=== PATIENT | female | born 1955 | race American Indian/Alaskan Native ===

== ENCOUNTER 2018-03-18 09:04 | Day surgery (SDC) | payer OTHER ==
[~2018-03-18 09:04] MED LIST: MARCAINE-EPI 0.25%-1:200,000 IJ ONE
--- NOTE | 2018-03-18 11:48 | Anesthesia Consultation ---
Anesthesia Consult and Med Hx Date of service: 03/18/18 - Airway Anesthetic Teeth Evaluation: Good ROM Head & Neck: Adequate Mental/Hyoid Distance: Adequate Mallampati Class: Class II Intubation Access Assessment: Probably Good - Pulmonary Exam CTA: Yes - Cardiac Exam Cardiac Exam: No Murmur - Pre-Operative Health Status ASA Pre-Surgery Classification: ASA2 Proposed Anesthetic Plan: General - Pre-Anesthesia Comment Pre-Anesthesia Comments: patient tolerates 4 METS. limited by joint pain. - Pulmonary Hx Smoking: No Hx Sleep Apnea: Yes (DX SLEEP APNEA , NO CPAP SINCE WEIGHT LOSS) - Cardiovascular System Hx Hypertension: Yes (2000) Hx Heart Attack/AMI: No Hx Heart Murmur: Yes - Central Nervous System Hx Back Pain: Yes - Endocrine Hx Hypothyroidism: Yes (ON DAILY MEDS) - Hematic Hx Anemia: Yes (NOT RECENT) - Other Systems Hx Cancer: No
--- NOTE | 2018-03-18 11:48 | Anesthesia Day of Surgery ---
Anesthesia Day of Surgery - Day of Surgery Patient Examined: Yes Patient H&P Reviewed: Yes Patient is NPO: Yes
[2018-03-18] MEDS ORDERED: NARCAN 0.4 MG/1 ML IV PRN (11:49)
[2018-03-18] MEDS ORDERED: ZOFRAN IV PRN ×2 (11:49→13:57)
[2018-03-18] MEDS ORDERED: DILAUDID IV PRN (11:49)
[2018-03-18] MEDS ORDERED: DEMEROL IV PRN (11:49)
[2018-03-18] MEDS ORDERED: DILAUDID IV STA (12:00)
[2018-03-18] MEDS ORDERED: LACTATED RINGERS 1,000 ML IV SCH (12:00)
[2018-03-18] MEDS ORDERED: DIPRIVAN 10 MG/ML IV ONE (12:43)
[2018-03-18] MEDS ORDERED: ANCEF/STERILE WATER 2 GM/20 ML IV NR (13:00)
[2018-03-18] MEDS ORDERED: MARCAINE-EPI 0.25%-1:200,000 IJ ONE ×2 (13:33→13:42)
[2018-03-18] MEDS ORDERED: TORADOL ONE (13:54)
[2018-03-18] MEDS ORDERED: TORADOL IV PRN (13:57)
--- NOTE | 2018-03-18 13:58 | Post Anesthesia Evaluation ---
- Post Anesthesia Evaluation Patient Participated: Yes Airway Patent: Yes Stable Respiratory Function: Yes Nausea/Vomiting: No Temp > 96.8F: Yes Pain Manageable: Yes Adequeate Hydration: Yes Anesthesia Complications: No
[2018-03-18] MEDS: DILAUDID IV PRN ×2 (14:20→14:39)
[2018-03-18 15:20] VITALS: BP 150/77
--- NOTE | 2018-03-19 01:36 | Operative Report ---
PREOPERATIVE DIAGNOSES: Right knee with meniscal tears medial and lateral, degenerative joint disease. POSTOPERATIVE DIAGNOSES: 1. Right knee with complex tear lateral meniscus, displaced bucket handle. 2. Tear posterior horn and body medial meniscus. 3. Grade 4 chondromalacia lateral compartment. 4. Grade 4 chondromalacia patellofemoral compartment. 5. Synovitis extensive. 6. Grade 3 chondromalacia medial femoral condyle. PROCEDURE PERFORMED: 1. Right knee arthroscopy and partial medial and lateral meniscectomy -- complex. 2. Extensive synovectomy. SURGEON: Jamal Aguilar M.D. FOCUSING MACHINE OPERATOR: Shekhar Machuca CSA. ANESTHESIA: General. ESTIMATED BLOOD LOSS: Minimal. COMPLICATIONS: None. DESCRIPTION OF PROCEDURE: The patient underwent successful induction of anesthesia. Antibiotics were pre-administered. Lower extremity was prepped and draped in usual fashion after exsanguination and placing in the leg finch. Arthroscopy was carried out utilizing standard medial and lateral portals. Systematic exam of the joint was carried out demonstrating the findings noted. Synovitis tricompartmentally debrided. Patellofemoral compartment demonstrated grade 4 chondromalacia on retropatellar surface and patella. No significant unstable chondral flap. Medial compartment demonstrated degenerative tear of posterior horn of the medial meniscus extending into the body, debrided with combination of a full radius resector and surface and next a excellent stable rim was achieved allowing preservation of peripheral 60-70% of meniscus in the posterior horn, and majority of the anterior horn and body. Early grade 3 chondromalacia was noted on medial condyle, which did not require any further treatments. Notch demonstrated normal ACL and PCL. The primary pathology was lateral compartment. A large displaced complex tear of the lateral meniscus was noted in the bucket handle ____. Final reduction demonstrated radial horizontal cleavage components. There was completely shredded meniscus, which did require resection. This necessitated essentially a total meniscectomy of the posterior horn and posterior half of the body. The majority of the anterior horn was preserved given excellent stable rim. The articular surface demonstrated a grade 4 chondromalacia affecting the posterior aspect of the lateral compartment both on lateral condyle and medial patella. Thorough examination and irrigation through the joint was carried out of both portals. Intraoperative photos were obtained for documentation. The joint was copiously irrigated with 0.25% Marcaine. Ports were closed with nylon sutures. Steri-Strips applied. She was taken to the recovery room in satisfactory condition having tolerated the procedure well. JOB# [id number] SANIAP/NTS
== END 2018-03-18 16:17 | disposition home or self-care (01) ==
LOC: OR 09:04
PROVIDERS: ATTEND Orthopaedic Surgery
DX: S83.281A Other tear of lateral meniscus, current injury, right knee, initial encounter (principal); S83.241A Other tear of medial meniscus, current injury, right knee, initial encounter; M22.41 Chondromalacia patellae, right knee; M65.9 Synovitis and tenosynovitis, unspecified; I10 Essential (primary) hypertension; G47.30 Sleep apnea, unspecified; E03.9 Hypothyroidism, unspecified; E78.5 Hyperlipidemia, unspecified; E66.9 Obesity, unspecified; K59.00 Constipation, unspecified; F51.01 Primary insomnia; Z88.0 Allergy status to penicillin; Z88.5 Allergy status to narcotic agent; X58.XXXA Exposure to other specified factors, initial encounter; Y93.89 Activity, other specified; Y92.89 Other specified places as the place of occurrence of the external cause; Y99.8 Other external cause status
CPT/HCPCS: 29876; 29881; J0690; J1170; J1885; J2175; J2704; J7120